=== PATIENT | male | born 1980 | race Caucasian/White ===

== ENCOUNTER 2020-07-24 18:46 | Emergency (ER) | payer BC, SELFPAY ==
[2020-07-24] MEDS ORDERED: Acetaminophen 500 MG TAB ONE (21:19)
[2020-07-24] MEDS ORDERED: cefTRIAXone\\ROCEPHIN 1 GM VIAL ONE (21:19)
[2020-07-24] MEDS ORDERED: Ondansetron ODT 4 MG TAB ONE (21:19)
[2020-07-24] MEDS ORDERED: Dexamethasone 20 MG/5 ML VIAL ONE (21:19)
== END 2020-07-24 21:39 | disposition home or self-care (01) ==
LOC: NAV ERS 18:46
DX: J06.9 Acute upper respiratory infection, unspecified (principal); J02.9 Acute pharyngitis, unspecified; F17.290 Nicotine dependence, other tobacco product, uncomplicated
CPT/HCPCS: 87081; 87430; 96372; 99283; J0696; J1100; Q0162